=== PATIENT | male | born 1975 | race Caucasian/White ===

== ENCOUNTER 2018-09-13 23:08 | Inpatient (IN) | payer OTHER ==
[~2018-09-13] VITALS: Ht 177.8 cm; Wt 58.0 kg
[2018-09-13 23:29] VITALS: Ht 177.8 cm; Wt 58.0 kg
[2018-09-14 00:54] LABS: BASOPHIL % 0.1 % (0-2); RED CELL DISTRIBUTION WIDTH 13.8 % (11.5-14.5)
[2018-09-14 00:59] LABS: PLATELET COUNT 448 x10^3mcL (130-400)
[2018-09-14 01:22] LABS: CALCIUM 8.4 mg/dL (8.5-10.1); CARBON DIOXIDE 22.7 mmol/L (21-32); CHLORIDE SERUM 99 mmol/L (98-107); CREATININE SERUM 0.5 mg/dL (0.7-1.3); GFR1 > 60 mL/min; GLUCOSE SERUM 126 mg/dL (74-106); POTASSIUM SERUM 3.4 mmol/L (3.5-5.1); SODIUM SERUM 135 mmol/L (136-145)
[2018-09-14 01:27] LABS: ALBUMIN 3.1 g/dL (3.4-5.0); ALKALINE PHOSPHATASE 96 U/L (46-116); ALT/SGPT 26 U/L (16-63); AST/SGOT 33 U/L (15-37); BILIRUBIN TOTAL 0.5 mg/dL (0.20-1.00); FREE T4 0.88 ng/dL (0.76-1.46); TOTAL PROTEIN, SERUM 7.6 g/dL (6.4-8.2)
[2018-09-14 02:15] LABS: UA SPECIFIC GRAVITY 1.025 (1.005-1.035); microscopic required? YES; urine erythrocyte NEGATIVE (NEGATIVE)
[2018-09-14 02:52] LABS: AMPHETAMINE QUAL UR NONE DETECTED (See below)
[2018-09-14 04:47] VITALS: BP 113/65
[2018-09-14 05:39] VITALS: BP 113/65
[2018-09-14 06:33] LABS: RED CELL DISTRIBUTION WIDTH 14.2 % (11.5-14.5)
[2018-09-14 06:55] LABS: BASOPHIL % 0 % (0-2); PLATELET COUNT 403 x10^3mcL (130-400)
[2018-09-14 07:03] LABS: CARBON DIOXIDE 21.8 mmol/L (21-32); CHLORIDE SERUM 98 mmol/L (98-107); CREATININE SERUM 0.6 mg/dL (0.7-1.3); GFR1 > 60 mL/min; GLUCOSE SERUM 119 mg/dL (74-106); MAGNESIUM 1.4 mg/dL (1.8-2.4); PHOSPHOROUS 2.1 mg/dL (2.5-4.9); POTASSIUM SERUM 3.7 mmol/L (3.5-5.1); SODIUM SERUM 135 mmol/L (136-145)
[2018-09-14 09:20] VITALS: BP 124/84
[2018-09-14 13:12] VITALS: BP 126/80
[2018-09-14 17:34] VITALS: BP 139/77
[2018-09-14 21:09] VITALS: BP 120/83
[2018-09-15 05:20] VITALS: BP 109/72
[2018-09-15 08:18] LABS: BASOPHIL % 0.3 % (0-2); CALCIUM 8.6 mg/dL (8.5-10.1); CARBON DIOXIDE 28.3 mmol/L (21-32); CHLORIDE SERUM 100 mmol/L (98-107); CREATININE SERUM 0.6 mg/dL (0.7-1.3); GFR1 > 60 mL/min; GLUCOSE SERUM 104 mg/dL (74-106); MAGNESIUM 2.1 mg/dL (1.8-2.4); PHOSPHOROUS 1.6 mg/dL (2.5-4.9); PLATELET COUNT 403 x10^3mcL (130-400); POTASSIUM SERUM 4.5 mmol/L (3.5-5.1); RED CELL DISTRIBUTION WIDTH 13.9 % (11.5-14.5); SODIUM SERUM 136 mmol/L (136-145)
[2018-09-15 09:10] VITALS: BP 144/92
[2018-09-15 12:56] VITALS: BP 129/88
[2018-09-15 17:49] VITALS: BP 132/89
[2018-09-15 21:07] VITALS: BP 116/77
[2018-09-16 04:19] VITALS: BP 118/82
[2018-09-16 07:04] LABS: CALCIUM 7.9 mg/dL (8.5-10.1); CARBON DIOXIDE 25.1 mmol/L (21-32); CHLORIDE SERUM 99 mmol/L (98-107); CREATININE SERUM 0.5 mg/dL (0.7-1.3); GFR1 > 60 mL/min; GLUCOSE SERUM 86 mg/dL (74-106); PHOSPHOROUS 1.9 mg/dL (2.5-4.9); POTASSIUM SERUM 3.7 mmol/L (3.5-5.1); SODIUM SERUM 132 mmol/L (136-145)
[2018-09-16 07:34] LABS: BASOPHIL % 0.3 % (0-2); PLATELET COUNT 374 x10^3mcL (130-400); RED CELL DISTRIBUTION WIDTH 13.7 % (11.5-14.5)
[2018-09-16 08:10] VITALS: BP 135/81
[2018-09-16 12:30] VITALS: BP 133/86
[2018-09-16 17:50] VITALS: BP 122/83
[2018-09-16 21:08] VITALS: BP 116/90
[2018-09-17 05:14] VITALS: BP 127/84
[2018-09-17 06:17] LABS: RED CELL DISTRIBUTION WIDTH 13.8 % (11.5-14.5)
[2018-09-17 06:27] LABS: PLATELET COUNT 426 x10^3mcL (130-400)
[2018-09-17 06:32] LABS: CALCIUM 8.3 mg/dL (8.5-10.1); CARBON DIOXIDE 27.4 mmol/L (21-32); CHLORIDE SERUM 100 mmol/L (98-107); CREATININE SERUM 0.5 mg/dL (0.7-1.3); GFR1 > 60 mL/min; GLUCOSE SERUM 96 mg/dL (74-106); MAGNESIUM 2.1 mg/dL (1.8-2.4); PHOSPHOROUS 2.8 mg/dL (2.5-4.9); POTASSIUM SERUM 4.7 mmol/L (3.5-5.1); SODIUM SERUM 133 mmol/L (136-145)
[2018-09-17 08:42] VITALS: BP 134/89
[2018-09-17 12:40] VITALS: BP 137/68
[2018-09-17 13:18] LABS: ATYPICAL LYMPH 2 %; BAND NEUTROPHIL 0 % (0-10); BASOPHIL 1 % (0-2); MONOCYTE 17 % (0-7); PLATELET MORPHOLOGY PLATELETS INCREASED; SEGMENTED NEUTROPHILS 72 % (37-75); rbc morphology (normal/abnorm) ABNORMAL (NORMAL)
[2018-09-17 16:40] VITALS: BP 109/70
[2018-09-17 21:23] VITALS: BP 131/86
[2018-09-18 05:16] VITALS: BP 135/92
[2018-09-18 06:22] LABS: RED CELL DISTRIBUTION WIDTH 13.4 % (11.5-14.5)
[2018-09-18 06:26] LABS: PLATELET COUNT 499 x10^3mcL (130-400)
[2018-09-18 06:35] LABS: CALCIUM 8.5 mg/dL (8.5-10.1); CARBON DIOXIDE 28.3 mmol/L (21-32); CHLORIDE SERUM 101 mmol/L (98-107); CREATININE SERUM 0.7 mg/dL (0.7-1.3); GFR1 > 60 mL/min; GLUCOSE SERUM 100 mg/dL (74-106); POTASSIUM SERUM 5.1 mmol/L (3.5-5.1); SODIUM SERUM 133 mmol/L (136-145)
[2018-09-18 09:15] VITALS: BP 114/79
[2018-09-18 11:17] LABS: BAND NEUTROPHIL 0 % (0-10); BASOPHIL 0 % (0-2); MONOCYTE 20 % (0-7); SEGMENTED NEUTROPHILS 69 % (37-75)
[2018-09-18 11:18] LABS: PLATELET MORPHOLOGY PLATELETS INCREASED; rbc morphology (normal/abnorm) ABNORMAL (NORMAL)
[2018-09-18 12:23] VITALS: BP 135/84
[2018-09-18 16:11] VITALS: BP 118/79
[2018-09-18 17:28] VITALS: BP 124/65
[2018-09-18 20:39] VITALS: BP 109/71
[2018-09-19 05:04] VITALS: BP 113/73
[2018-09-19 07:18] LABS: RED CELL DISTRIBUTION WIDTH 13.4 % (11.5-14.5)
[2018-09-19 07:23] LABS: CALCIUM 8.9 mg/dL (8.5-10.1); CARBON DIOXIDE 27.7 mmol/L (21-32); CHLORIDE SERUM 97 mmol/L (98-107); CREATININE SERUM 0.6 mg/dL (0.7-1.3); GFR1 > 60 mL/min; GLUCOSE SERUM 101 mg/dL (74-106); POTASSIUM SERUM 4.2 mmol/L (3.5-5.1); SODIUM SERUM 131 mmol/L (136-145)
[2018-09-19 08:34] LABS: PLATELET COUNT 672 x10^3mcL (130-400)
[2018-09-19 09:53] VITALS: BP 122/84
[2018-09-19] MEDS ORDERED: LEVAQUIN750 MG PO (11:10)
[2018-09-19] MEDS ORDERED: CLEOCIN HCL150 MG PO (11:13)
[2018-09-19 11:34] VITALS: BP 122/84
[2018-09-19 13:40] LABS: BAND NEUTROPHIL 4 % (0-10); BASOPHIL 0 % (0-2); MONOCYTE 25 % (0-7); SEGMENTED NEUTROPHILS 51 % (37-75)
[2018-09-19 13:41] LABS: rbc morphology (normal/abnorm) NORMAL (NORMAL)
== END 2018-09-19 12:05 | disposition home or self-care (01) | DRG 178 ==
LOC: ED 23:08 → DU 09-14 03:15
PROVIDERS: Emergency Medicine; General Practice; ADMIT Internal Medicine
DX: A15.9 Respiratory tuberculosis unspecified (principal); R04.2 Hemoptysis; E87.2 Acidosis; J18.1 Lobar pneumonia, unspecified organism; J91.8 Pleural effusion in other conditions classified elsewhere; F17.210 Nicotine dependence, cigarettes, uncomplicated; Z88.0 Allergy status to penicillin; Z88.6 Allergy status to analgesic agent
CPT/HCPCS: 83880; 84439; 86480; 86580; 87116; 87206; 87804; G0480; J0456; J0696; J2270; J2405; J3475; J7030; J7050; J7620; Q0092; Q9967

== ENCOUNTER → 2019-02-11 | Outpatient (CLI) | payer MEDICAID ==
[~2019-02-11] MED LIST: CLEOCIN HCL150 MG PO; LEVAQUIN750 MG PO
== END | disposition home or self-care (01) ==
LOC: RD 11:07
DX: J18.9 Pneumonia, unspecified organism (principal)